=== PATIENT | male | born 1985 | race Caucasian/White ===

== ENCOUNTER 2021-02-02 17:15 | Emergency (ER) | payer OTHER, BC, SELFPAY ==
[2021-02-02 17:17] VITALS: BP 143/93; PULSE 71; RESP 18; TEMP 36; O2SAT 100
--- NOTE | 2021-02-02 19:11 | ED.GENADULT ---
HPI - General Adult General Chief complaint: Back Pain/Injury Stated complaint: back pain Time Seen by Provider: 02/02/21 17:25 Source: patient Mode of arrival: ambulatory Limitations: no limitations History of Present Illness HPI narrative: Patient presents for evaluation of low back pain. He indicates he has a history of chronic low back pain and has exacerbations of this few times per year. 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 Yesterday he was doing some work around the house when he noted a twinge of pain in the low back. Since that time it is progressively worsened. States the pain now is severe, without descriptive quality. No radicular component. No paresthesias. No urinary or bowel incontinence. He states that in the past hydrocodone does help with pain. He is currently taking ibuprofen which is helping somewhat. [facility] Related Data Home Medications Medication Instructions Recorded Confirmed buprenorphine HCl [Belbuca] 150 mcg BUCCAL Q12H 02/02/21 Allergies Allergy/AdvReac Type Severity Reaction Status Date / Time No Known Allergies Allergy Verified 02/02/21 18:12 Review of Systems Review of Systems: Narrative: CONSTITUTIONAL: Denies fever, chills, or sweats. EYES: Denies visual changes, redness, or discharge. ENT: Denies rhinorrhea, congestion, sore throat, or otalgia. CARDIOVASCULAR: Denies chest pain, palpitations, or edema. RESPIRATORY: Denies cough or dyspnea. GASTROINTESTINAL: Denies abdominal pain, nausea, vomiting, or diarrhea. GENITOURINARY: Denies dysuria or hematuria. SKIN: Denies rash or itching. MUSCULOSKELETAL: Reports low back pain. Denies joint pain, or myalgia. NEUROLOGIC: Denies headache, numbness, dizziness, or weakness. PSYCHIATRIC: Denies anxiety or depression. [facility] Past Medical History Medical History (Updated 02/02/21 @ 19:40 by Corey Monroy, AI, APURVA) Chronic low back pain Surgical History Surgical History No pertinent past surgical history Family History Family History Mother No pertinent past medical history Social History Social History (Reviewed 02/02/21 @ 19:16 by Corey Monroy, [facility], ) Smoking status: Never smoker Substance use: never Living arrangements: with family Gender identity (if verbalized by the patient): Male Sexual Orientation (if Verbalized by the Patient): Straight or Heterosexual Spiritual care concerns: No Exam Narrative: Exam Narrative: GENERAL: Well-appearing, well-nourished, and in no acute distress. HEAD: Normocephalic, atraumatic. EYES: PERRLA and EOMI. ENT: Nares clear, no rhinorrhea or epistaxis. Mucous membranes moist. Oropharynx without tonsillar hypertrophy exudate or other lesions. Bilateral TMs pearly herndon nonbulging NECK: Supple. No adenopathy or masses. No carotid bruits or JVD CHEST: Clear to auscultation. No respiratory distress. No wheezes rales or rhonchi HEART: Regular rate and rhythm. No murmur heard. Normal peripheral pulses. ABDOMEN: Soft, nontender, nondistended, normal active bowel sounds. MS: Tenderness to midline and paraspinous muscles bilaterally of lumbar spine and over bilateral SI joints. Positive straight leg raise on the left at approximately 45 degrees SKIN: Warm, dry, no rash. NEURO: No focal deficits. Alert and oriented x3. PSYCH: Normal mood and affect. Course Course Emergency Course: This is a 35-year-old male who presents with acute exacerbation of chronic low back pain. No recent traumatic injury. I offered to check imaging, which patient declined. Pain management at the [place] low suspicion. He was advised to schedule appointment on Thursday. Will DC with a prescription for medrol dose preston and norco and return for worsening symptoms. Pt in agreement with plan of care Vital Signs Vital signs: Vital Signs Sulphur
[2021-02-02] MEDS: KETOROLAC (*BKC) 60 MG/2 ML VIAL IM (19:25)
[2021-02-02 19:55] VITALS: BP 129/96; PULSE 62; RESP 18; O2SAT 98
== END 2021-02-02 19:55 | disposition home or self-care (01) ==
PROVIDERS: Emergency Provider Nurse Practitioner
DX: M54.5 Low back pain (principal); G89.29 Other chronic pain
CPT/HCPCS: 96372; 99283; J1885

== ENCOUNTER 2022-01-13 09:01 | Emergency (ER) | payer OTHER, BC, SELFPAY ==
[2022-01-13 09:09] VITALS: BP 149/84; PULSE 67; RESP 18; TEMP 36.5; O2SAT 99
--- NOTE | 2022-01-13 09:29 | ED.BACK ---
HPI - Back Pain/Injury General Chief Complaint: Back Pain/Injury Stated Complaint: back injury Time Seen by Provider: 01/13/22 09:15 History of Present Illness HPI Narrative: Patient is a 36-year-old male with a history of chronic back pain here for evaluation of acute on chronic back pain for the past day. Patient states that he was very active yesterday working on the yard and lifting his kids, and he noticed a twinge in his low back. This twinge is consistent with his previous exacerbations of his chronic pain. Since then he has had about a constant 4 out of 10 pain, but when he moves in a certain way, he notes an 8 of 10 pain. Attempted 600 mg of ibuprofen this morning without much relief. Does note that steroids typically help his pain. Denies paresthesias, saddle anesthesia, incontinence or retention of his bowel or bladder. Denies dysuria, hematuria, urgency, frequency, fevers. No history of IV drug use. [facility], and was reportedly recommended to have surgery on his back, which he is not interested in pursuing. Related Data Home Medications Medication Instructions Recorded Confirmed No Home Medications 01/13/22 01/13/22 Allergies Allergy/AdvReac Type Severity Reaction Status Date / Time No Known Allergies Allergy Verified 01/13/22 09:13 Review of Systems Review of Systems: Gen.: Denies fevers or chills Eyes: Denies eye pain or visual change ENT: Denies congestion Respiratory: Denies shortness of breath or cough CV: Denies chest pain or palpitations GI: Denies abdominal pain nausea, emesis or diarrhea : no incontinence. Denies burning, urgency, frequency or hematuria Musculoskeletal: Reports back pain. Denies muscle pain Neuro: Denies numbness, tingling, weakness or focal weakness Skin: Denies rash Except as documented, all other systems reviewed and negative [facility] Past Medical History Medical History Chronic low back pain Surgical History Surgical History No pertinent past surgical history Family History Family History Mother No pertinent past medical history Social History Social History Smoking status: Never smoker Substance use: never Gender identity (if verbalized by the patient): Male Sexual Orientation (if Verbalized by the Patient): Straight or Heterosexual Spiritual care concerns: No Exam Narrative: APPEARANCE: No acute distress, nontoxic, resting in bed EYES: EOMI HEENT: Normocephalic, atraumatic, OMM RESPIRATORY: No respiratory distress Clear to auscultation bilaterally with no rhonchi wheezing or rales. CARDIOVASCULAR: Regular rate and rhythm without murmurs rubs or gallops. ABDOMINAL: Soft, nontender, nondistended, no rebound or guarding MUSCULOSKELETAl: Ambulatory with a cane. Tender to palpation along right lumbar paraspinal muscles. No midline tenderness along CT or L-spine. Straight leg raise negative bilaterally. Neurovascularly intact distally. moves all extremities. No clubbing, cyanosis or edema. NEURO: Awake and alert. Following commands, speech normal, no focal deficits SKIN: Warm, dry. No rashes lesions or abrasions PSYCHIATRIC: Normal affect/mood, Course Vital Signs Vital signs: Vital Signs Temperature 97.7 F 01/13/22 09:09 Pulse Rate 67 01/13/22 09:09 Respiratory Rate 18 01/13/22 09:09 Blood Pressure 149/84 H 01/13/22 09:09 Pulse Oximetry 99 01/13/22 09:09 Oxygen Delivery Room Air 01/13/22 09:09 Temperature 97.7 F 01/13/22 09:09 Pulse Rate 65 01/13/22 10:45 Respiratory Rate 18 01/13/22 10:45 Blood Pressure 128/81 01/13/22 10:45 Pulse Oximetry 95 01/13/22 10:45 Oxygen Delivery Room Air 01/13/22 09:09 MDM - Back Pain/I
[2022-01-13] MEDS: ACETAMINOPHEN 500 MG TABLET 1000 MG PO (09:38)
[2022-01-13] MEDS: LIDOCAINE 5% PATCH 1 PATCH TRANSDERM (09:39)
[2022-01-13 10:45] VITALS: BP 128/81; PULSE 65; RESP 18; O2SAT 95
== END 2022-01-13 10:47 | disposition home or self-care (01) ==
PROVIDERS: Emergency Provider Emergency Medicine
DX: S39.012A Strain of muscle, fascia and tendon of lower back, initial encounter (principal); G89.29 Other chronic pain; X50.0XXA Overexertion from strenuous movement or load, initial encounter
CPT/HCPCS: 96372; 99283; A9270; J1100

== ENCOUNTER 2022-04-04 11:08 | Emergency (ER) | payer OTHER, BC, SELFPAY ==
--- NOTE | ~2022-04-04 | XR_ITS ---
XR shoulder LT min 2V 04/04/2022 11:32 Indication: Left shoulder pain Procedure: 4 views left shoulder Comparison: No prior studies for comparison. Findings: No fracture, subluxation or dislocation. There is anatomic alignment. No significant soft t issue abnormality. No foreign bodies. Impression: 1: No acute bone or joint abnormality. Reviewed, dictated and finalized at location B. Impression: 1: No acute bone or joint abnormality.
[2022-04-04 11:13] VITALS: BP 132/62; PULSE 78; RESP 20; TEMP 36.7; O2SAT 99
--- NOTE | 2022-04-04 11:30 | ED.UPPEXIN ---
HPI - Extremity Injury (Upper) General Chief Complaint: Extremity Injury, Upper Stated Complaint: left arm pain Time Seen by Provider: 04/04/22 11:15 History of Present Illness HPI narrative: 36-year-old male presents the emergency room for evaluation of left shoulder pain. Patient states he woke up this morning with left shoulder pain that radiates into his left elbow. Patient denies any known injury or trauma. Patient states the pain is worse in his left shoulder when attempting to lift it. 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 Denies any repetitive injury/motion. Related Data Allergies Allergy/AdvReac Type Severity Reaction Status Date / Time No Known Allergies Allergy Verified 04/04/22 11:15 Review of Systems Review of Systems: CONSTITUTIONAL: Denies fever, chills, or sweats. EYES: Denies visual changes, redness, or discharge. ENT: Denies rhinorrhea, congestion, sore throat, or otalgia. CARDIOVASCULAR: Denies chest pain, palpitations, or edema. RESPIRATORY: Denies cough or dyspnea. GASTROINTESTINAL: Denies abdominal pain, nausea, vomiting, or diarrhea. GENITOURINARY: Denies dysuria or hematuria. SKIN: Denies rash or itching. MUSCULOSKELETAL: Reports left shoulder pain NEUROLOGIC: Denies headache, numbness, dizziness, or weakness. PSYCHIATRIC: Denies anxiety or depression. PMFSH Past Medical History Medical History Chronic low back pain Surgical History Surgical History No pertinent past surgical history Family History Family History Mother No pertinent past medical history Social History Social History Smoking status: Never smoker Substance use: never Gender identity (if verbalized by the patient): Male Sexual Orientation (if Verbalized by the Patient): Straight or Heterosexual Spiritual care concerns: No Exam Narrative: GENERAL: Well-appearing, well-nourished, no physical limitations, and in no acute distress. HEAD: Normocephalic, atraumatic. EYES: Conjunctivae normal, PERRLA and EOMI. NECK: Supple. CHEST: Clear to auscultation. No respiratory distress. No wheezes rales or rhonchi. No tenderness. HEART: Regular rate and rhythm. No murmur heard. Normal peripheral pulses. BACK: No cervical/thoracic/lumbar tenderness, step-offs, bony abnormality; FROM EXTREMITIES: Left shoulder: Tenderness in the AC joint. Limited range of motion in all frost. Positive AC shear test. Positive Neer and Mcconnell test. 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 No noted wounds NEURO: No focal deficits. Alert and oriented x3. MAEW. CN's II-XI intact bilaterally, normal gait PSYCH: Cooperative. Normal mood and affect. Course Vital Signs Vital signs: Vital Signs Temperature 36.7 C 04/04/22 11:13 Pulse Rate 78 04/04/22 11:13 Respiratory Rate 20 04/04/22 11:13 Blood Pressure 132/62 04/04/22 11:13 Pulse Oximetry 99 04/04/22 11:13 Oxygen Delivery Room Air 04/04/22 11:13 Temperature 36.7 C 04/04/22 11:13 Pulse Rate 78 04/04/22 11:13 Respiratory Rate 20 04/04/22 11:13 Blood Pressure 132/62 04/04/22 11:13 Pulse Oximetry 99 04/04/22 11:13 Oxygen Delivery Room Air 04/04/22 11:13 Discharge Plan Discharge Clinical Impression: Impingement syndrome of left shoulder region Patient Disposition: Home, Self-Care Condition: Stable Instructions: Antibiotic Form, Shoulder Impingement Syndrome (ED) Prescriptions: New prednisone 20 mg tablet 60 mg PO DAILY 5 Days Qty: 15 0RF methocarbamol 750 mg tablet 750 mg PO TID Qty: 20 0RF Follow-up/Referrals: Jae Coley MD [Physician] - [facility] [Primary Care Provider] - Time of Disposition: 12:14
== END 2022-04-04 12:23 | disposition home or self-care (01) ==
PROVIDERS: Emergency Provider Nurse Practitioner Family
DX: M75.42 Impingement syndrome of left shoulder (principal)
CPT/HCPCS: 73030; 99283

== ENCOUNTER 2023-07-28 11:02 | Emergency (ER) | payer BC, OTHER, SELFPAY ==
--- NOTE | ~2023-07-28 | CT_ITS ---
EXAMINATION: CT lumbar spine wo con DATE: 07/28/2023 13:07 INDICATION: Right-sided low back pain. TECHNIQUE: Computed tomography (CT) of the lumbar spine was performed without intravenous contrast. A utomated exposure control and iterative reconstruction technique were employed. The dose-length produ ct was 646.81 mGy-cm. COMPARISON: None FINDINGS: There is 5 degrees levocurvature of lumbar spine. There is mild chronic anterior wedging of T12 vertebral body. There are Schmorl's nodes at multiple levels. There is mildly decreased disc hei ght at T12-L1, L1-L2, and L2-L3, moderately decreased disc height at L4-L5, and mildly decreased disc height at L5-S1. The following disc levels are specifically discussed: L1-L2: The disc is bulging. There is mild bilateral facet joint osteoarthritis. There is mild bilater al neural foraminal stenosis. There is mild central canal stenosis. L2-L3: The disc is bulging. There is mild bilateral facet joint osteoarthritis. There is mild bilater al neural foraminal stenosis. There is mild central canal stenosis. L3-L4: The disc is bulging. There is mild bilateral facet joint osteoarthritis. There is mild bilater al neural foraminal stenosis. There is mild central canal stenosis. L4-L5: The disc is bulging. There is mild bilateral facet joint osteoarthritis. There is moderate rig ht and mild left neural foraminal stenosis. There is mild central canal stenosis. L5-S1: The disc is bulging. There is moderate bilateral facet joint osteoarthritis. There is mild arturo ateral neural foraminal stenosis. There is mild central canal stenosis. IMPRESSION: 1. Moderate lumbar spondylosis. 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
[2023-07-28 11:08] VITALS: BP 133/81; PULSE 64; RESP 16; TEMP 36.9; O2SAT 98
--- NOTE | 2023-07-28 12:47 | ED.BACK ---
HPI - Back Pain/Injury General Chief Complaint: Back Pain/Injury Stated Complaint: back pain Time Seen by Provider: 07/28/23 13:42 Source: patient Mode of arrival: ambulatory Limitations: no limitations History of Present Illness HPI Narrative: This is a 37 year old male that presents to the ER low back pain. Ongoing over the last couple of days. Worse with movement and relieved with rest. Reports he was doing some house work on Thursday when it started. Reports the pain is in the right side of his low back and radiating into his buttock. He has not taken anything for pain today. denies saddle anesthesia, bowel/bladder incontinence. Related Data Allergies Allergy/AdvReac Type Severity Reaction Status Date / Time No Known Allergies Allergy Verified 04/04/22 11:15 Review of Systems Review of Systems: CONSTITUTIONAL: Denies fever SKIN: Denies rash MUSCULOSKELETAL: Reports back pain, joint pain, and myalgia. NEUROLOGIC: Denies numbness, or weakness. All systems reviewed & are unremarkable except as noted in HPI and below PMFSH Past Medical History Medical History Chronic low back pain Surgical History Surgical History No pertinent past surgical history Family History Family History Mother No pertinent past medical history Social History Social History Smoking status: Never smoker Substance use: never Living arrangements: with family Gender identity (if verbalized by the patient): Male Sexual Orientation (if Verbalized by the Patient): Straight or Heterosexual Spiritual care concerns: No Exam Narrative: GENERAL: Well-appearing, well-nourished, and in no acute distress. HEAD: Normocephalic, atraumatic. EYES: EOMI. CHEST: Clear to auscultation. No respiratory distress. No wheezes rales or rhonchi HEART: Regular rate and rhythm. No murmur heard. Normal peripheral pulses. BACK: No midline spinal tenderness EXTREMITIES: Normal range of motion. No edema. Strength equal in bilateral lower extremities (5/5) SKIN: Warm, dry, no rash. NEURO: No focal deficits. Alert and oriented x3. PSYCH: Normal mood and affect Course Course Emergency Course: Patient updated on workup. Improved after pain medication Vital Signs Vital signs: Vital Signs Temperature 98.4 F 07/28/23 11:08 Pulse Rate 64 07/28/23 11:08 Respiratory Rate 16 07/28/23 11:08 Blood Pressure 133/81 07/28/23 11:08 Pulse Oximetry 98 07/28/23 11:08 Oxygen Delivery Room Air 07/28/23 11:08 Temperature 98.4 F 07/28/23 11:08 Pulse Rate 64 07/28/23 11:08 Respiratory Rate 16 07/28/23 11:08 Blood Pressure 133/81 07/28/23 11:08 Pulse Oximetry 98 07/28/23 11:08 Oxygen Delivery Room Air 07/28/23 11:08 MDM - Back Pain/Injury MDM Narrative Medical decision making narrative: Medical screening exam performed by advanced practice provider in triage. Patient presents to the emergency department for low back pain ongoing over the last several days. No known injury or trauma. Patient is neurovascularly intact. CT scan lumbar spine shows moderate lumbar spondylosis. Patient was updated on workup. Reports improvement with pain medication. Instructed to rest use ice /heat and take [id number] pain medication as needed. Will be prescribed muscle relaxer as needed for pain and a steroid taper. He is to follow up with primary provider. He was given warnings to return to the ER Differential Diagnosis Differential diagnosis: Likely lumbar radiculopathy and strain of lumbar region Imaging Data Radiologist's impression: ITS Impressions Lumbar Spine CT 07/28/23 13:20 IMPRESSION: 1. Moderate lumbar spondylosis. Critical Care Time Critical Care Time Critic
[2023-07-28] MEDS: KETOROLAC 30 MG/ML VIAL (*BKC) IM (12:51)
[2023-07-28] MEDS: ACETAMINOPHEN 500 MG TABLET 1000 MG PO (12:51)
[2023-07-28] MEDS: diazePAM INJ (*CRX) 10 MG/2 ML SYRINGE 5 MG IM (12:51)
== END 2023-07-28 13:56 | disposition home or self-care (01) ==
LOC: ANHED 13:55
PROVIDERS: Emergency Provider Physician Assistant
DX: M54.41 Lumbago with sciatica, right side (principal); M47.816 Spondylosis without myelopathy or radiculopathy, lumbar region
CPT/HCPCS: 72131; 96372; 99284; A9270; J1885; J3360

== ENCOUNTER 2023-11-02 07:40 | Emergency (ER) | payer BC, OTHER, SELFPAY ==
[2023-11-02 08:03] VITALS: O2SAT 100
--- NOTE | 2023-11-02 08:04 | PC.NURSE ---
Pt c/o sore throat with pain rating 8. Pt states feels like throat is swollen causing difficulty breathing. Resp status WNL. Noted enlarged tonsils.
[2023-11-02] MEDS: LIDOCAINE HCL 2% VISC SOLN 15 ML UDC PO (08:07)
--- NOTE | 2023-11-02 08:13 | ED.GENADULT ---
HPI - General Adult General Chief complaint: Upper Respiratory Infection Stated complaint: throat swollen Time Seen by Provider: 11/02/23 07:50 History of Present Illness HPI narrative: patient is a 38-year-old male who presents ER with sinus congestion sore throat. His children recently had influenza and pinkeye. He has been feeling unwell for 6 days. Reports he he had been doing better yesterday during the day however when he woke up this morning his throat was so sore he felt like he could swallow. No difficulty breathing. No recent fevers. He has found no alleviating factors. Related Data Allergies Allergy/AdvReac Type Severity Reaction Status Date / Time No Known Allergies Allergy Verified 04/04/22 11:15 Review of Systems Constitutional: Constitutional: Denies chills, Reports fatigue and Denies fever(s) ENT: Reports nasal congestion and Reports sore throat Cardiovascular: Cardiovascular: Reports no additional cardiovascular complaints Respiratory: Respiratory: Denies chest congestion, Reports cough, Denies dyspnea and Denies wheezing Gastrointestinal: Gastrointestinal: Denies abdominal pain, Denies nausea and Denies vomiting PMFSH Past Medical History Medical History Chronic low back pain Surgical History Surgical History No pertinent past surgical history Family History Family History Mother No pertinent past medical history Social History Social History Smoking status: Never smoker Substance use: never Living arrangements: with family Gender identity (if verbalized by the patient): Male Sexual Orientation (if Verbalized by the Patient): Straight or Heterosexual Spiritual care concerns: No Exam Narrative: GENERAL: Well-appearing, well-nourished, and in no acute distress. HEAD: Normocephalic, atraumatic. ENT: Mucous membranes moist. Mild pharyngitis. Uvula midline and nonedematous. Tonsils erythematous but not hypertrophied. Tolerating oral secretions without issue. CHEST: Clear to auscultation. No respiratory distress. HEART: Regular rate and rhythm. Normal peripheral pulses. EXTREMITIES: Normal range of motion. No edema. NEURO: Alert and oriented x3. PSYCH: Normal mood and affect. Course Course Emergency Course: Symptoms resolved with viscous lidocaine. Discharge with a small supply. Vital Signs Vital signs: Vital Signs Pulse Oximetry 100 11/02/23 08:03 Oxygen Delivery Room Air 11/02/23 08:03 Pulse Oximetry 100 11/02/23 08:03 Oxygen Delivery Room Air 11/02/23 08:03 Medical Decision Making Vital Signs Vital Signs: Vital Signs Pulse Oximetry 100 11/02/23 08:03 Oxygen Delivery Room Air 11/02/23 08:03 Pulse Oximetry 100 11/02/23 08:03 Oxygen Delivery Room Air 11/02/23 08:03 Discharge Plan Discharge Clinical Impression: Pharyngitis, acute Patient Disposition: Home, Self-Care Condition: Stable Instructions: Pharyngitis (ED) Additional Instructions: As discussed you have a viral illness. Unfortunately there are no specific medications we can give you to make the illness end faster. Antibiotics do not work for viral illnesses. However, you can take Acetaminophen or Ibuprofen to help with fevers and pain. Stay well hydrated and rested. Return to the emergency department if your fevers and chills continue to worse after 5 days, if you develop worsening cough with thick sputum, or are unable to stay hydrated. Contact your primary care provider in the next few days for a re-evaluation and to make sure your symptoms are improving. Prescriptions: New lidocaine HCl [Lidocaine Viscous] 2 % solution 1 applic mucous membrane TID PRN (Reason: pain) Qty: 600 0RF No Action
== END 2023-11-02 08:58 | disposition home or self-care (01) ==
PROVIDERS: Emergency Provider Emergency Medicine
DX: J02.9 Acute pharyngitis, unspecified (principal)
CPT/HCPCS: 99283

== ENCOUNTER 2024-04-12 12:20 | Emergency (ER) | payer BC, OTHER, SELFPAY ==
--- NOTE | ~2024-04-12 | CT_ITS ---
EXAMINATION: CT lumbar spine wo con DATE: 04/12/2024 14:27 INDICATION: Low back pain. TECHNIQUE: Computed tomography (CT) of the lumbar spine was performed without intravenous contrast. A utomated exposure control and iterative reconstruction technique were employed. The dose-length produ ct was 704.18 mGy-cm. COMPARISON: CT lumbar spine 07/28/23 FINDINGS: There is 5 degrees levocurvature of lumbar spine. There are Schmorl's nodes at multiple lev els. There is mild chronic anterior wedging of T10-L1 vertebral bodies. There is mildly decreased dis c height at L1-L2, L2-L3, and L3-L4, moderately decreased disc height at L4-L5, and mildly decreased disc height at L5-S1. The following disc levels are specifically discussed: L1-L2: The disc is bulging. There is severe right and mild left facet joint osteoarthritis. There is mild bilateral neural foraminal stenosis. There is mild bilateral central canal stenosis. L2-L3: The disc is bulging. There is mild bilateral facet joint osteoarthritis. There is mild bilater al neural foraminal stenosis. There is mild central canal stenosis. L3-L4: The disc is bulging. There is mild bilateral facet joint osteoarthritis. There is mild bilater al neural foraminal stenosis. There is mild central canal stenosis. L4-L5: The disc is bulging. There is moderate right and mild left facet joint osteoarthritis. There i s mild bilateral neural foraminal stenosis. There is mild central canal stenosis. L5-S1: The disc is bulging. There is moderate bilateral facet joint osteoarthritis. There is mild arturo ateral neural foraminal stenosis. There is mild central canal stenosis. IMPRESSION: 1. Moderate lumbar spondylosis, stable from 07/28/2023. 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
[2024-04-12 13:11] VITALS: BP 137/80; PULSE 62; RESP 14; TEMP 36.6; O2SAT 100
--- NOTE | 2024-04-12 14:12 | ED.BACK ---
HPI - Back Pain/Injury General Chief Complaint: Back Pain/Injury Stated Complaint: back pain Time Seen by Provider: 04/12/24 13:39 Source: patient Mode of arrival: ambulatory Limitations: no limitations History of Present Illness HPI Narrative: Pt is a 38-year-old male who presents to the ER with complaints of acute back pain that been chronic in the past. He reports this time his lower back pain started on , but became severe on Thursday. Pt reports he is seen at [facility] and they have recommended surgery, but he's not within the age frame yet. He reports his pain is in both of his hips and radiates down his R leg. Pt feels as though he has been leaning to the left for the past three days. He has no complaints of urinary symptoms, shortness of breath, chest pain, or numbness/weakness/tingling. Related Data Allergies Allergy/AdvReac Type Severity Reaction Status Date / Time No Known Allergies Allergy Verified 04/12/24 13:38 Review of Systems Review of Systems: All systems reviewed & are unremarkable except as noted in HPI and below PMFSH Past Medical History Medical History Chronic low back pain Surgical History Surgical History No pertinent past surgical history Family History Family History Mother No pertinent past medical history Social History Social History Smoking status: Never smoker Substance use: never Living arrangements: with family Gender identity (if verbalized by the patient): Male Sexual Orientation (if Verbalized by the Patient): Straight or Heterosexual Spiritual care concerns: No Exam Narrative: GENERAL: Well-appearing, well-nourished and in no acute distress. NECK: Supple, normal range of motion, no JVD. No lymphadenopathy. EXTREMITIES: Normal range of motion, no swelling, clubbing or other deformities. Pt is leaning slightly towards the L because it's more comfortable. NEUROLOGICAL: Cranial nerves II through XII grossly intact, no focal deficits noted. Normal gait, normal speech. SKIN: Warm, dry, normal color, no rashes, no lesions. Course Vital Signs Vital signs: Vital Signs Temperature 36.6 C 04/12/24 13:11 Pulse Rate 62 04/12/24 13:11 Respiratory Rate 14 04/12/24 13:11 Blood Pressure 137/80 04/12/24 13:11 Pulse Oximetry 100 04/12/24 13:11 Temperature 36.6 C 04/12/24 13:11 Pulse Rate 62 04/12/24 13:11 Respiratory Rate 14 04/12/24 13:11 Blood Pressure 137/80 04/12/24 13:11 Pulse Oximetry 100 04/12/24 13:11 MDM - Back Pain/Injury MDM Narrative Medical decision making narrative: Pt is a 38-year-old male who presents to the ER with complaints of acute back pain that been chronic in the past. He reports this time his lower back pain started on , but became severe on Thursday. Pt reports he is seen at [facility] and they have recommended surgery, but he's not within the age frame yet. He reports his pain is in both of his hips and radiates down his R leg. Pt feels as though he has been leaning to the left for the past three days. He has no complaints of urinary symptoms, shortness of breath, chest pain, or numbness/weakness/tingling. CT scan of pt's lumbar spine was unchanged since he was scanned in July 2023. Results relayed to pt. Pt reports his pain has decreased with the Toradol injection and [place]aly. Will send pt home with a steroid pack and muscle relaxant. Pt should follow-up with his PCP at the [facility]. Pt verbalizes understanding and is in agreement with discharge plan. Differential Diagnosis Differential diagnosis: Likely sciatica, strain of lumbar region and pyelonephritis Medical Records Attestation: I reviewed the patient's medical records. Lab Data Labs: Lab
[2024-04-12] MEDS: HYDROcodone/acetaminophen (*CRX) 5-325 MG TABLET 1 TAB PO (14:33)
[2024-04-12] MEDS: KETOROLAC (*BKC) 60 MG/2 ML VIAL IM (14:33)
[2024-04-12 14:45] LABS: Add Urine Microscopic? NO; Appearance Urine Clear (Clear); Bilirubin Urine Negative (Negative); Blood Urine Negative (Negative); Color Urine Yellow (Yellow); Glucose Urine UA Negative (Negative); Ketones Urine Negative (Negative); Leukocyte Esterase Ur Negative LEU/UL (Negative); Nitrate Urine Negative (Negative); Protein Urine Negative (Negative); Specific Grav Ur 1.012 (1.001-1.035); Urobilinogen Urine 0.2 mg/dL (<2.0); pH Urine 6.5 (5.0-9.0)
[2024-04-12 16:11] VITALS: BP 126/76; PULSE 68; RESP 16; TEMP 36.6; O2SAT 100
== END 2024-04-12 16:13 | disposition home or self-care (01) ==
PROVIDERS: Emergency Provider Registered Nurse
DX: M54.50 Low back pain, unspecified (principal); G89.29 Other chronic pain; M47.812 Spondylosis without myelopathy or radiculopathy, cervical region
CPT/HCPCS: 72131; 81003; 96372; 99284; A9270; J1885

== ENCOUNTER 2024-04-13 17:17 | Emergency (ER) | payer BC, OTHER, SELFPAY ==
[2024-04-13 17:21] VITALS: BP 140/87; PULSE 65; RESP 18; TEMP 36.9; O2SAT 99
--- NOTE | 2024-04-13 18:18 | ED.BACK ---
HPI - Back Pain/Injury General Chief Complaint: Back Pain/Injury Stated Complaint: back pain, seen and eval yest Time Seen by Provider: 04/13/24 17:25 Source: patient Mode of arrival: ambulatory Limitations: no limitations History of Present Illness HPI Narrative: This is a 38-year-old male who presents ED with chief complaint of lower back pain acute on chronic. States that the pain radiates into the right buttock/right lateral hip. States that a week ago he pulled his back and has been hurting ever since. Reports a chronic degenerative disc disease. He was here yesterday for the same states that the Toradol shot usually helps a lot more than has. Pain is not significantly increased. There is no numbness or weakness of any extremities. Denies groin numbness, fevers, chills, IV drug use, bowel or bladder dysfunction. Related Data Allergies Allergy/AdvReac Type Severity Reaction Status Date / Time No Known Allergies Allergy Verified 04/13/24 17:29 Review of Systems Review of Systems: All systems as dictated in HPI PMFSH Past Medical History Medical History Chronic low back pain Surgical History Surgical History No pertinent past surgical history Family History Family History Mother No pertinent past medical history Social History Social History Smoking status: Never smoker Substance use: never Living arrangements: with family Gender identity (if verbalized by the patient): Male Sexual Orientation (if Verbalized by the Patient): Straight or Heterosexual Spiritual care concerns: No Exam Narrative: GENERAL: Well-appearing, well-nourished, and in no acute distress. HEAD: Normocephalic, atraumatic. EYES: PERRLA and EOMI. ENT: Nares clear, no rhinorrhea or epistaxis. Mucous membranes moist. Oropharynx without tonsillar hypertrophy exudate or other lesions. NECK: Supple. No adenopathy or masses. CHEST: No respiratory distress. Clear to auscultation. No wheezes rales or rhonchi HEART: Regular rate and rhythm. No murmur heard. Normal peripheral pulses. ABDOMEN: Soft, nontender, nondistended, normal active bowel sounds. MSK: Normal range of motion. No edema. SKIN: Warm, dry, no rash. NEURO: Alert and oriented x4. No focal deficits. PSYCH: Normal mood and affect. Course Vital Signs Vital signs: Vital Signs Temperature 98.5 F 04/13/24 17:21 Pulse Rate 65 04/13/24 17:21 Respiratory Rate 18 04/13/24 17:21 Blood Pressure 140/87 04/13/24 17:21 Pulse Oximetry 99 04/13/24 17:21 Oxygen Delivery Room Air 04/13/24 17:21 Temperature 98.5 F 04/13/24 17:21 Pulse Rate 65 04/13/24 17:21 Respiratory Rate 18 04/13/24 17:21 Blood Pressure 140/87 04/13/24 17:21 Pulse Oximetry 99 04/13/24 17:21 Oxygen Delivery Room Air 04/13/24 17:21 MDM - Back Pain/Injury MDM Narrative Medical decision making narrative: this is a 38-year-old male who presents for acute on chronic back pain. Vitals are normal. No red flag back signs or symptoms today. A CT imaging yesterday showed diffuse DDD that is unchanged from last year. Patient was given Toradol shot here. Short course of Toradol given for home. Encouraged to continue taking the medications he was prescribed yesterday for the same thing. Pt will be discharged in stable condition. Return precautions given and supportive measures discussed. Pt is understanding and agreeable with plan for discharge and follow-up with PCP. Discharge Plan Discharge Clinical Impression: Lumbar radiculopathy Patient Disposition: Home, Self-Care Condition: Stable Instructions: Antibiotic Form, Lumbar Radiculopathy (ED), Back Pain (ED) Additional Instructions: Your exam today is r
[2024-04-13] MEDS: KETOROLAC 30 MG/ML VIAL (*BKC) IM (18:40)
== END 2024-04-13 18:47 | disposition home or self-care (01) ==
LOC: ANHED 18:31
PROVIDERS: Emergency Provider Physician Assistant
DX: M54.16 Radiculopathy, lumbar region (principal); G89.29 Other chronic pain
CPT/HCPCS: 96372; 99283; J1885